=== PATIENT | female | born 1950 | race Caucasian/White ===

== ENCOUNTER 2023-05-08 08:29 | Outpatient (CLI) | payer MEDICARE, OTHER ==
[2023-05-08] MEDS ORDERED: Iopamidol 300 61% 100 ML VIAL FS ONE (10:32)
== END 2023-05-08 08:30 | disposition home or self-care (01) ==
LOC: CSHCT 08:29
PROVIDERS: ATTEND Physician Assistant Medical
DX: K59.00 Constipation, unspecified (principal); R10.11 Right upper quadrant pain
CPT/HCPCS: 74177; 82565; Q9967